=== PATIENT | female | born 1975 | race American Indian/Alaskan Native ===

== ENCOUNTER 2017-03-04 01:53 | Emergency (ER) | payer SELFPAY ==
[2017-03-04 02:31] VITALS: BP 159/102
[2017-03-04] MEDS ORDERED: TYLENOL ONE (03:07)
[2017-03-04] MEDS ORDERED: TYLENOL PO ONE (03:15)
== END 2017-03-04 05:10 | disposition left against medical advice (07) ==
LOC: ED 01:53
DX: M79.1 Myalgia (principal); J45.909 Unspecified asthma, uncomplicated; Z88.5 Allergy status to narcotic agent; Z88.0 Allergy status to penicillin; Z91.018 Allergy to other foods; V89.2XXA Person injured in unspecified motor-vehicle accident, traffic, initial encounter; Y93.89 Activity, other specified; Y99.9 Unspecified external cause status; Y92.410 Unspecified street and highway as the place of occurrence of the external cause; Z53.21 Procedure and treatment not carried out due to patient leaving prior to being seen by health care provider

== ENCOUNTER 2017-03-04 12:05 | Emergency (ER) | payer OTHER ==
[2017-03-04] MEDS ORDERED: NORCO 5/325 PO ONE (13:47)
[2017-03-04] MEDS ORDERED: ZOFRAN ODT PO ONE (13:47)
[2017-03-04] MEDS ORDERED: FLEXERIL PO ONE (13:47)
[2017-03-04 14:16] LABS: Basophils % (Auto) 0.5 % (0.0-1.8); Eosinophils % (Auto) 2.2 % (0.0-4.3); Hematocrit 40.8 % (30.3-42.9); Hemoglobin 12.9 gm/dl (10.1-14.3); Mean Corpuscular HGB Conc 32 % (30-34); Mean Corpuscular Volume 81 fl (79-97); Platelet Count 250 K/mm3 (140-440); Red Blood Count 5.04 M/mm3 (3.65-5.03); White Blood Count 5.3 K/mm3 (4.5-11.0)
[2017-03-04 14:18] LABS: Mean Corpuscular Hemoglobin 26 pg (28-32)
[2017-03-04 14:28] LABS: Anion Gap 18 mmol/L; BUN/Creatinine Ratio 18.33; Blood Urea Nitrogen 11 mg/dL (7-17); Calcium 9.2 mg/dL (8.4-10.2); Carbon Dioxide 25 mmol/L (22-30); Chloride 98.1 mmol/L (98-107); Glucose 106 mg/dL (65-100); Potassium 3.7 mmol/L (3.6-5.0); Sodium 137 mmol/L (137-145)
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
[2017-03-04] MEDS ORDERED: TORADOL IV ONE (18:27)
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
[2017-03-04 18:47] VITALS: BP 136/81
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
== END 2017-03-04 18:45 | disposition home or self-care (01) ==
LOC: ED 12:05
DX: S16.1XXA Strain of muscle, fascia and tendon at neck level, initial encounter (principal); M54.9 Dorsalgia, unspecified; R10.31 Right lower quadrant pain; R10.32 Left lower quadrant pain; J45.909 Unspecified asthma, uncomplicated; Z88.0 Allergy status to penicillin; Z88.5 Allergy status to narcotic agent; Z91.018 Allergy to other foods; V89.2XXA Person injured in unspecified motor-vehicle accident, traffic, initial encounter; Y93.89 Activity, other specified; Y99.9 Unspecified external cause status; Y92.410 Unspecified street and highway as the place of occurrence of the external cause
CPT/HCPCS: 36415; 72070; 72125; 74177; 80048; 84703; 85025; 96374; 99284; J1885; Q9967; Q0162

== ENCOUNTER 2018-01-18 19:14 | Emergency (ER) | payer OTHER ==
[2018-01-18] MEDS ORDERED: ASPIRIN PO ONE ×2 (19:25→21:05)
[2018-01-18 20:01] LABS: Basophils % (Auto) 0.4 % (0.0-1.8); Eosinophils # (Auto) 0.1 K/mm3 (0.0-0.4); Eosinophils % (Auto) 1.6 % (0.0-4.3); Hematocrit 40.6 % (30.3-42.9); Hemoglobin 13.1 gm/dl (10.1-14.3); Lymphocytes # (Auto) 1.4 K/mm3 (1.2-5.4); Lymphocytes % (Auto) 40.6 % (13.4-35.0); Mean Corpuscular HGB Conc 32 % (30-34); Mean Corpuscular Hemoglobin 27 pg (28-32); Mean Corpuscular Volume 83 fl (79-97); Monocytes # (Auto) 0.5 K/mm3 (0.0-0.8); Monocytes % (Auto) 14.6 % (0.0-7.3); Platelet Count 263 K/mm3 (140-440); Red Blood Count 4.92 M/mm3 (3.65-5.03); Red Cell Distribution Width 16.6 % (13.2-15.2)
[2018-01-18 20:07] LABS: Bacteria,Urine 1+ /HPF (Negative); Bilirubin,Urine NEG (Negative); Blood,Urine NEG (Negative); Color,Urine Straw (Yellow); Protein,Urine <15 mg/dL mg/dL (Negative); Urobilinogen,Urine < 2.0 mg/dL (<2.0)
[2018-01-18 20:28] LABS: BUN/Creatinine Ratio 13; Blood Urea Nitrogen 8 mg/dL (7-17); Calcium 9.2 mg/dL (8.4-10.2); Hemolysis Index 22
[2018-01-18] MEDS ORDERED: ATIVAN PO ONE (21:04)
--- NOTE | 2018-01-18 21:18 | Emergency Department Report ---
ED Chest Pain HPI - General Chief Complaint: Chest Pain Stated Complaint: CHEST PAIN Time Seen by Provider: 01/18/18 20:47 Source: patient Mode of arrival: Ambulatory Limitations: No Limitations - History of Present Illness Initial Comments: Ms Chao is a 42 year-old woman with hx of anxiety who presents with chest pain, palpitations. Woke up from a nap with bilateral upper chest pain without radiation. no shortness of breath. felt like her heart was racing. Feels like her anxiety. Initially was 10/10 pain. On arrival was 7/10. Now is 4/ 10. 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 No fever. No cough. Has hydroxyzine at home for anxiety, takes at night sometimes. No other complaints. MD Complaint: chest pain - Related Data Previous Rx's Medication Instructions Recorded Last Taken Type Albuterol *Only Ed* [Proventil 2.5 mg IH QID PRN #1 nebu 06/25/14 Unknown Rx 0.5% NEBS] Ibuprofen [Motrin] 600 mg PO Q8H PRN #15 tablet 03/04/17 Unknown Rx methOCARBAMOL [Robaxin TAB] 500 mg PO Q6H PRN #15 tablet 03/04/17 Unknown Rx traMADol [Ultram] 50 mg PO Q6HR PRN #15 tablet 03/04/17 Unknown Rx Allergies Allergy/AdvReac Type Severity Reaction Status Date / Time codeine Allergy Itching Verified 06/26/15 19:19 Penicillins Allergy Itching Verified 06/26/15 19:19 pineapple Allergy Itching Verified 06/26/15 19:19 Heart Score - HEART Score History: Slightly suspicious EKG: Normal Age: < 45 Risk factors: No known risk factors Troponin: < normal limit HEART Score: 0 ED Review of Systems ROS: Stated complaint: CHEST PAIN Other details as noted in HPI Comment: All other systems reviewed and negative ED Past Medical Hx - Past Medical History Previous Medical History?: Yes Hx Asthma: Yes Additional medical history: hodgekins lymphoma in [place] 16 yrs-chemo and radiation in 1999. - Surgical History Past Surgical History?: Yes Additional Surgical History: X1 - Social History Smoking Status: Never Smoker Substance Use Type: None - Medications Home Medications: Home Medications Medication Instructions Recorded Confirmed Last Taken Type Albuterol *Only Ed* [Proventil 2.5 mg IH QID PRN #1 nebu 06/25/14 Unknown Rx 0.5% NEBS] Ibuprofen [Motrin] 600 mg PO Q8H PRN #15 tablet 03/04/17 Unknown Rx methOCARBAMOL [Robaxin TAB] 500 mg PO Q6H PRN #15 tablet 03/04/17 Unknown Rx traMADol [Ultram] 50 mg PO Q6HR PRN #15 tablet 03/04/17 Unknown Rx ED Physical Exam - General Limitations: No Limitations General appearance: alert, in no apparent distress - Head Head exam: Present: atraumatic, normocephalic - Eye Eye exam: Present: normal appearance, PERRL, EOMI - ENT ENT exam: Present: normal exam, mucous membranes moist - Neck Neck exam: Present: normal inspection. Absent: tenderness, meningismus - Respiratory Respiratory exam: Present: normal lung sounds bilaterally. Absent: respiratory distress, wheezes, rales - Cardiovascular Cardiovascular Exam: Present: regular rate, normal rhythm. Absent: systolic murmur, diastolic murmur, rubs, gallop - GI/Abdominal GI/Abdominal exam: Present: soft. Absent: distended, tenderness, guarding - Extremities Exam Extremities exam: Present: normal inspection. Absent: tenderness - Back Exam Back exam: Present: normal inspection. Absent: tenderness - Neurological Exam Neurological exam: Present: alert, oriented X3 - Psychiatric Psychiatric exam: Present: normal affect, normal mood - Skin Skin exam: Present: warm, dry, intact, normal color. Absent: rash ED Course Vital Signs 01/18/18 19:20 Temperature 98.9 F Pulse Rate 97 H Respiratory 16 Rate Blood Pressure 149/85 O2 Sat by Pulse 100 Oximetry ED Medical Decision Making - Lab Data Result diagrams: 01/18/18 19:38 01/18/18 19:38 Lab Results 01/18/18 01/18/18 01/18/18 Range/Units 19:38 19:38 19:38 WBC 3.6 L (4.5-11.0) K/mm3 RBC 4.92 (3.65-5.03) M/mm3 Hgb 13.1 (10.1-14.3) gm/dl Hct 40.6 (30.3-42.9) % MCV 83 (79-97) fl MCH 27 L (28-32) pg MCHC 32 (30-34) % RDW 16.6 H (13.2-15.2) % Plt Count 263 (140-440) K/mm3 Lymph % (Auto) 40.6 H (13.4-35.0) % [place] % (Auto) 14.6 H (0.0-7.3) % Eos % (Auto) 1.6 (0.0-4.3) % Baso % (Auto) 0.4 (0.0-1.8) % Lymph # 1.4 (1.2-5.4) K/mm3 [place] # 0.5 (0.0-0.8) K/mm3 Eos # 0.1 (0.0-0.4) K/mm3 Baso # 0.0 (0.0-0.1) K/mm3 Seg Neutrophils % 42.8 (40.0-70.0) % Seg Neutrophils # 1.5 L (1.8-7.7) K/mm3 Sodium 140 (137-145) mmol/L Potassium 4.0 (3.6-5.0) mmol/L Chloride 98.7 (98-107) mmol/L Carbon Dioxide 27 (22-30) mmol/L Anion Gap 18 mmol/L BUN 8 (7-17) mg/dL Creatinine 0.6 L (0.7-1.2) mg/dL Estimated GFR > 60 ml/min BUN/Creatinine Ratio 13 % Glucose 87 (65-100) mg/dL Calcium 9.2 (8.4-10.2) mg/dL Troponin T < 0.010 (0.00-0.029) ng/mL HCG, Qual Negative (Negative) Urine Color (Yellow) Urine Turbidity (Clear) Urine pH (5.0-7.0) Ur Specific [place] (1.003-1.030) Urine Protein (Negative) mg/dL Urine Glucose (UA) (Negative) mg/dL Urine Ketones (Negative) mg/dL Urine Blood (Negative) Urine Nitrite (Negative) Urine Bilirubin (Negative) Urine Urobilinogen (<2.0) mg/dL Ur Leukocyte Esterase (Negative) Urine WBC (Auto) (0.0-6.0) /HPF Urine RBC (Auto) (0.0-6.0) /HPF U Epithel Cells (Auto) (0-13.0) /HPF Urine Bacteria (Auto) (Negative) /HPF 01/18/18 Range/Units 19:44 WBC (4.5-11.0) K/mm3 RBC (3.65-5.03) M/mm3 Hgb (10.1-14.3) gm/dl Hct (30.3-42.9) % MCV (79-97) fl MCH (28-32) pg MCHC (30-34) % RDW (13.2-15.2) % Plt Count (140-440) K/mm3 Lymph % (Auto) (13.4-35.0) % [place] % (Auto) (0.0-7.3) % Eos % (Auto) (0.0-4.3) % Baso % (Auto) (0.0-1.8) % Lymph # (1.2-5.4) K/mm3 [place] # (0.0-0.8) K/mm3 Eos # (0.0-0.4) K/mm3 Baso # (0.0-0.1) K/mm3 Seg Neutrophils % (40.0-70.0) % Seg Neutrophils # (1.8-7.7) K/mm3 Sodium (137-145) mmol/L Potassium (3.6-5.0) mmol/L Chloride (98-107) mmol/L Carbon Dioxide (22-30) mmol/L Anion Gap mmol/L BUN (7-17) mg/dL Creatinine (0.7-1.2) mg/dL Estimated GFR ml/min BUN/Creatinine Ratio % Glucose (65-100) mg/dL Calcium (8.4-10.2) mg/dL Troponin T (0.00-0.029) ng/mL HCG, Qual (Negative) Urine Color Straw (Yellow) Urine Turbidity Clear (Clear) Urine pH 7.0 (5.0-7.0) Ur Specific [place] 1.003 (1.003-1.030) Urine Protein <15 mg/dl (Negative) mg/dL Urine Glucose (UA) Neg (Negative) mg/dL Urine Ketones Neg (Negative) mg/dL Urine Blood Neg (Negative) Urine Nitrite Neg (Negative) Urine Bilirubin Neg (Negative) Urine Urobilinogen < 2.0 (<2.0) mg/dL Ur Leukocyte Esterase Neg (Negative) Urine WBC (Auto) 1.0 (0.0-6.0) /HPF Urine RBC (Auto) 1.0 (0.0-6.0) /HPF U Epithel Cells (Auto) 1.0 (0-13.0) /HPF Urine Bacteria (Auto) 1+ (Negative) /HPF - EKG Data 01/18/18 19:24 HR 89, sinus, normal axis, intervals wnl, no ST changes concerning for acute ischemia - Medical Decision Making Ms Chao is a 42 year-old woman with hx of anxiety who presents with bilateral upper chest pain. no dyspnea. VSS on arrival. benign exam. PERC negative. HEART score 0-1 depending on how the story is scored. EKG non- ischemic. trop negative. Lytes wnl. Not ACS. Not PE. Not dehydration. NSR no evidence of arrhythmia. i suspect this is anxiety. Full resolution of symptoms with ativan. Also given 325mg ASA on arrival. had discussion with patient regarding symptoms and what symptoms to return for. Will call pcp in am to let them know she was seen here tonight and to schedule follow-up appt. safe for dc to home Critical care attestation.: If time is entered above; I have spent that time in minutes in the direct care of this critically ill patient, excluding procedure time. ED Disposition Clinical Impression: Anxiety Chest pain Qualifiers: Chest pain type: unspecified Qualified Code(s): R07.9 - Chest pain, unspecified Disposition: DC-01 TO HOME OR SELFCARE Is pt being admited?: No Condition: Stable Instructions: Chest Pain (ED), Anxiety (ED) Referrals: PRIMARY CARE, [Primary Care Provider] - 3-5 Days
[2018-01-18 23:15] VITALS: BP 131/78
== END 2018-01-18 23:16 | disposition home or self-care (01) ==
LOC: ED 19:14
DX: F41.9 Anxiety disorder, unspecified (principal); J45.909 Unspecified asthma, uncomplicated; Z88.0 Allergy status to penicillin; Z88.5 Allergy status to narcotic agent; Z91.018 Allergy to other foods
CPT/HCPCS: 36415; 80048; 81001; 84484; 84703; 85025; 93005; 93010; 99284

== ENCOUNTER 2020-03-04 07:39 | Emergency (ER) | payer OTHER ==
[2020-03-04] MEDS ORDERED: ACETAMINOPHEN 325 MG TAB PO ONE (08:14)
--- NOTE | 2020-03-04 08:54 | XRay Report ---
XR chest routine 2V INDICATION / CLINICAL INFORMATION: tachycardia, shortness of breath, fever. COMPARISON: None available. FINDINGS: SUPPORT DEVICES: None. HEART / MEDIASTINUM: No significant abnormality. LUNGS / PLEURA: Left lower lung zone parenchymal opacification. Costophrenic sulci are sharp. No pneu mothorax. ADDITIONAL FINDINGS: No significant additional findings. IMPRESSION: 1. Opacity in the left lower lung zone concerning for pneumonia. Signer Name: Kanu Ramos MD Signed: 03/04/2020 8:50 AM Workstation Name: [id number]
[2020-03-04 09:30] LABS: Basophils % (Auto) 0.4 % (0.0-1.8); Hematocrit 43.9 % (30.3-42.9); Hemoglobin 14.5 gm/dl (10.1-14.3); Lymphocytes # (Auto) 0.6 K/mm3 (1.2-5.4); Lymphocytes % (Auto) 8.5 % (13.4-35.0); Mean Corpuscular HGB Conc 33 % (30-34); Mean Corpuscular Volume 86 fl (79-97); Monocytes # (Auto) 0.6 K/mm3 (0.0-0.8); Monocytes % (Auto) 7.9 % (0.0-7.3); Platelet Count 230 K/mm3 (140-440); Red Blood Count 5.12 M/mm3 (3.65-5.03); Red Cell Distribution Width 16.1 % (13.2-15.2)
[2020-03-04 09:39] LABS: Alanine Aminotransferase 25 units/L (7-56); Albumin 4.2 g/dL (3.9-5); BUN/Creatinine Ratio 10; Blood Urea Nitrogen 8 mg/dL (7-17); Calcium 9.1 mg/dL (8.4-10.2); Hemolysis Index 14
--- NOTE | 2020-03-04 10:46 | Emergency Department Report ---
Minor Respiratory - HPI Chief Complaint: Upper Respiratory Infection Stated Complaint: FEVER/RUNNY NOSE/CONGESTED Duration: 1 Day Minor Respiratory: Yes Cough, Yes Fever, No Shortness of Breath Other History: 44-year-old -Maced[place] female presents to the emergency room stating she has been running a fever runny nose since yesterday. Patient also reports she has had a productive cough and chest congestion since yesterday. Patient states that she had fever with chills started last night about 6 PM. Patient denies any other sick contact. Patient reports she has a past medical history of non-Hodgkin's lymphoma. Patient states she has been in remission for 20 years. Patient admits she has a primary care provider but cannot remember the name. ED Review of Systems ROS: Stated complaint: FEVER/RUNNY NOSE/CONGESTED Other details as noted in HPI Comment: All other systems reviewed and negative ED Past Medical Hx - Past Medical History Hx Asthma: Yes Additional medical history: hodgekins lymphoma in [place] 16 yrs-chemo and radiation in 1999. - Surgical History Additional Surgical History: X1 - Social History Smoking Status: Never Smoker - Medications Home Medications: Home Medications Medication Instructions Recorded Confirmed Last Taken Type Albuterol *Only Ed* [Proventil 2.5 mg IH QID PRN #1 nebu 06/25/14 Unknown Rx 0.5% NEBS] methOCARBAMOL [Robaxin TAB] 500 mg PO Q6H PRN #15 tablet 03/04/17 Unknown Rx traMADoL [Ultram] 50 mg PO Q6HR PRN #15 tablet 03/04/17 Unknown Rx Ibuprofen [Motrin 600 MG tab] 600 mg PO Q8H PRN #15 tablet 11/22/18 Unknown Rx guaiFENesin [Robitussin] 200 mg PO TID #80 ml 11/22/18 Unknown Rx Azithromycin [Zithromax Z-BUSHRA] 250 mg PO DAILY #6 tablet 03/04/20 Unknown Rx Benzonatate [Tessalon Perles] 100 mg PO Q8HR #20 capsule 03/04/20 Unknown Rx Minor Respiratory Exam - Exam General: Vital signs noted. No distress. Alert and acting appropriately. HEENT: Yes Moist Mucous Membranes, No Pharyngeal Erythema, No Pharyngeal Exudates, No Rhinorrhea, No Conjuctival Injection, No Frontal Tenderness, No Maxillary Tenderness Ear: Neither TM Bulge, Neither TM Erythema, Neither EAC Pain, Neither EAC Discharge Neck: Yes Supple, No Adenopathy Lungs: Yes Good Air Exchange, No Wheezes, No Ronchi, No Stridor, No Cough, No Labored Respirations, No Retractions, No Use of Accessory Muscles, No Other Abnormal Lung Sounds Heart: Yes Regular, No Murmur Abdomen: Yes Normal Bowel Sounds, No Tenderness, No Peritoneal Signs Skin: No Rash, No Edema Neurologic: Alert and oriented, no deficits. Musculoskeletal: Unremarkable. ED Course Vital Signs 03/04/20 07:43 Temperature 100.3 F H Pulse Rate 129 H Respiratory 18 Rate Blood Pressure 154/99 O2 Sat by Pulse 97 Oximetry ED Medical Decision Making - Lab Data Result diagrams: 03/04/20 08:37 03/04/20 08:37 - Radiology Data Radiology results: report reviewed Referring Physician:ALBINO NEWPatient Name:AURELIA BLASPatient ID :[id number] of :[id number]:FemaleAccession:[id number] Date:1588-10-36Kofsox Status:[place] [address] XRay Report Signed Patient: AURELIA BLAS MR#: [id number] : 1975 Acct:[id number] Age/Sex: 44 / F ADM Date: 03/04/20 Loc: ED Attending Dr: Ordering Physician: ALBINO NEW Date of Service: 03/04/20 Procedure(s): XR chest routine 2V Accession Number(s): [id number] cc: ALBINO NEW Fluoro Time In Minutes: XR chest routine 2V INDICATION / CLINICAL INFORMATION: tachycardia, shortness of breath, fever. COMPARISON: None available. FINDINGS: SUPPORT DEVICES: None. HEART / MEDIASTINUM: No significant abnormality. LUNGS / PLEURA: Left lower lung zone parenchymal opacification. Costophrenic sulci are sharp. No pneumothorax. ADDITIONAL FINDINGS: No significant additional findings. IMPRESSION: 1. Opacity in the left lower lung zone concerning for pneumonia. Signer Name: Kanu Ramos MD Signed: 03/04/2020 8:50 AM Workstation Name: [id number] Transcribed By: Dictated By: Kanu Ramos MD - Medical Decision Making 68-year-old -Maced[place] male presents to the emergency room stated that he went to [facility] and his blood pressure was elevated so they sent him to the emergency room to be evaluated. Patient denies any headache no chest pain no shortness of breath. Patient reports no past medical history except chronic back pain. Patient reports he does not have a primary care provider. Discussed with patient her x-ray shows she has a left lower lung pneumonia. I discussed the patient I will place her on azithromycin. She can take benzonatate for cough. Tylenol or ibuprofen as needed for fever and pain. Follow-up with her primary care provider the next 2 to 3 days. Critical care attestation.: If time is entered above; I have spent that time in minutes in the direct care of this critically ill patient, excluding procedure time. ED Disposition Clinical Impression: Community acquired pneumonia of left lower lobe of lung Disposition: DC- TO HOME OR SELFCARE Is pt being admited?: No Does the pt Need Aspirin: No Condition: Stable Instructions: Community-acquired Pneumonia (ED), Bacterial Pneumonia (ED) Additional Instructions: Complete antibiotics as prescribed. Tylenol or ibuprofen as needed for fever chills or pain. Please increase your water intake by 3 L daily. Follow-up with your primary care provider if your symptoms persist or gets worse. Prescriptions: Benzonatate [Tessalon Perles] 100 mg PO Q8HR #20 capsule Azithromycin [Zithromax Z-BUSHRA] 250 mg PO DAILY #6 tablet Referrals: PRIMARY CARE, [Primary Care Provider] - 3-5 Days Your, primary care provider [Other] - 3-5 Days Forms: Work/School Release Form(ED)
[2020-03-04 11:07] VITALS: BP 150/83
== END 2020-03-04 11:05 | disposition home or self-care (01) ==
LOC: ED 07:39
DX: J18.1 Lobar pneumonia, unspecified organism (principal); J45.909 Unspecified asthma, uncomplicated; Z98.890 Other specified postprocedural states; Z79.899 Other long term (current) drug therapy; Z88.6 Allergy status to analgesic agent; Z88.0 Allergy status to penicillin; Z91.018 Allergy to other foods
CPT/HCPCS: 36415; 71046; 80053; 82140; 85025; 87040